=== PATIENT | female | born 1975 | race Caucasian/White ===

== ENCOUNTER → 2017-04-15 | Outpatient (CLI) | payer OTHER ==
[~2017-04-15] MED LIST: ARMO250T5 PO; CABE0.5T PO; CLB/200 PO; DEXT1SYP; FLUT0.15 NAE; FLV1 PO; HYDR25TA4 PO; LEUC5TAB PO; LISI20TA3 PO; METH2.5T PO; METO1TAB69 PO; NORE-37 PO; NORT75CA2 PO; ONDA8TAB7 PO; PANT40TA PO; TAPE50TA5 PO; TEMA30CA4 PO; TOFA1TAB PO; [UNRECOGNIZED DRUG - CODE] PO
[2017-04-15 12:19] LABS: BASO % 0.1 %; BASO ABS # 0.01 K/uL (0-0.2); COMPLETE YES; EOS % 2.1 %; HEMATOCRIT 37.3 % (37-47); IG% 0.2 %; LYMPH % 45.6 %; LYMPH ABS # 3.88 K/uL (1.2-3.4); MEAN CELL VOLUME 95.6 fL (80-100); MEAN CORPUSCULAR HEMOGLOBIN 32.1 pg (25-34); MEAN CORPUSCULAR HGB CONC 33.5 g/dl (32-36); MEAN PLATELET VOLUME 9.9 fL (7.4-10.4); MONO % 6.5 %; NEUT % 45.5 %; PLATELET COUNT 387 K/uL (130-400); WHITE BLOOD COUNT 8.51 K/uL (4.8-10.8)
[2017-04-15 12:46] LABS: ALT/SGPT 33 U/L (12-78); AST/SGOT 19 U/L (15-37); BLOOD UREA NITROGEN 24 mg/dl (7-18); BUN/CREATININE RATIO 28.3 (10-20); CARBON DIOXIDE 29 mmol/L (21-32); CHLORIDE 102 mmol/L (98-107); CREATININE 0.86 mg/dl (0.60-1.20); GLUCOSE 103 mg/dl (70-99); POTASSIUM 3.7 mmol/L (3.5-5.1); SODIUM 136 mmol/L (136-145)
[2017-04-15 12:57] LABS: ALKALINE PHOSPHATASE 97 U/L (45-117); THYROID STIMULATING HORMONE 0.876 uIu/ml (0.300-4.500)
== END | disposition home or self-care (01) ==
LOC: C.LABBFT 10:40
PROVIDERS: ATTEND Internal Medicine
DX: R00.0 Tachycardia, unspecified (principal)

== ENCOUNTER → 2017-05-19 | Outpatient (CLI) | payer OTHER | END | disposition home or self-care (01) | LOC: C.PAPS 10:37 | PROVIDERS: ATTEND Obstetrics & Gynecology | DX: Z12.4 Encounter for screening for malignant neoplasm of cervix (principal) ==

== ENCOUNTER 2021-03-04 22:56 | Inpatient (IN) ==
[2021-03-04] MEDS ORDERED: fentaNYL citrate 100 MCG/2 ML VIAL IV STA (23:35)
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
[2021-03-05 01:08] LABS: Basophils # (auto) 0.01 K/uL (0-0.2); Basophils % (auto) 0.1 %; Eosinophils % (auto) 0.6 %; Hematocrit (blood only) 37.6 % (37-47); Hemoglobin 12.5 g/dL (12.0-16.0); Immature Granulocytes # (auto) 0.06 K/uL (0.00-0.02); Immature Granulocytes % (auto) 0.4 %; Lymphocytes # (auto) 2.07 K/uL (1.2-3.4); Lymphocytes % (auto) 12.5 %; Mean Corpuscular Hemoglobin 30.9 pg (25-34); Mean Corpuscular Hgb Conc 33.2 g/dL (32-36); Mean Corpuscular Volume 93.1 fL (80-100); Mean Platelet Volume 9.5 fL (7.4-10.4); Monocytes # (auto) 0.57 K/uL (0.11-0.59); Monocytes % (auto) 3.4 %; Neutrophils # (auto) 13.77 K/uL (1.4-6.5); Platelet Count 467 K/uL (130-400); RDW Coefficient of Variation 15.3 % (11.5-14.5); RDW Standard Deviation 52.1 fL (36.4-46.3); Red Blood Count 4.04 M/uL (4.2-5.4); White Blood Count 16.58 K/uL (4.8-10.8)
[2021-03-05] MEDS ORDERED: HYDROmorphone INJ 0.5 MG/0.5 ML SYR IV STA (03:21)
[2021-03-05] MEDS ORDERED: ONDANSETRON INJ 2 MG/ML 2 ML VIAL IV PRN ×2 (04:20→14:04)
[2021-03-05] MEDS: D5W AND 1/2NSS 1,000 ML IV SCH ×2 (04:28→17:28)
[2021-03-05] MEDS: [UNRECOGNIZED DRUG - OTHER] SCH ×4 (04:44→23:18)
[2021-03-05] MEDS ORDERED: ceFAZolin 2000MG 2,000 MG/15 ML SYR IV SCH (06:00)
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
[2021-03-05] MEDS: HYDROmorphone INJ 1 MG/ML SYRINGE IV PRN ×3 (06:57→12:49)
[2021-03-05] MEDS: PANTOprazole 40 MG TAB PO SCH (08:04)
[2021-03-05] MEDS: METOPROLOL SUCC 50MG EXT REL TAB PO SCH (08:04)
[2021-03-05] MEDS: lisinopril 20 MG TAB PO SCH ×2 (08:04→20:31)
[2021-03-05] MEDS: DULoxetine HCL 60 MG CAP PO SCH (08:04)
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
--- NOTE | 2021-03-05 09:04 | XRay Report ---
TWO VIEW CHEST CLINICAL HISTORY: Preoperative examination. FINDINGS: AP and lateral chest radiographs are compared to study dated 08/22/2015. The cardiomediasti nal silhouette is unremarkable. The lungs and pleural spaces are clear. There is no pneumothorax. Th e bony thorax appears intact. There is gaseous distention of the stomach. IMPRESSION: No active disease in the chest. ACT 112: Negative or not required by law. Electronically signed by: Cristian Melo M.D. 03/05/2021 9:03 AM
--- NOTE | 2021-03-05 12:06 | Anesthesiology Consultation ---
Date of Service March 05, 2021 Assessment & Plan Chart Review Chart Review: Acceptable Risk for Surgery and Patient NOT seen in Pre Admission Testing Consults Requested none ASA ASA2 Proposed Anesthesia Anesthesia Type: General History Surgery Operation Date: 03/05/21 08:20 Proposed Procedures p Right Tibial Open Reduction Internal Fixation - Daniel Hess, Height/Weight Height: 5 ft 1 in Weight: 75.3 kg Allergies Allergy/AdvReac Type Severity Reaction Status Date / Time No Known Allergies Allergy Unknown Verified 03/04/21 23:24 Medications Home Medications Medication Instructions Recorded Confirmed Last Taken Lactobacillus 1 cap PO DAILY cap 06/01/19 03/05/21 03/04/21 acidophilus-Bifidobac.animalis 31 billion cell capsule armodafinil 250 mg tablet 250 mg PO DAILY PRN tab 06/01/19 03/05/21 Unknown leucovorin calcium 5 mg tablet 5 mg PO .COMPLEX tab 06/01/19 03/05/21 03/02/21 ondansetron 8 mg disintegrating 8 mg PO Q8H PRN #30 tab 06/01/19 03/05/21 Unknown tablet tofacitinib 5 mg tablet 5 mg PO BID tab 06/01/19 03/05/21 03/04/21 cholecalciferol (vitamin D3) 125 10,000 units PO .COMPLEX cap 11/23/19 03/05/21 03/02/21 mcg (5,000 unit) capsule norethindrone acetate 1.5 1 tab PO DAILY #84 tab 06/07/20 03/05/21 03/04/21 mg-ethinyl estradiol 30 mcg tablet celecoxib 200 mg capsule 200 mg PO BID #180 cap 10/26/20 03/05/21 03/04/21 duloxetine 60 mg capsule,delayed 60 mg PO DAILY #90 cap 10/26/20 03/05/21 03/04/21 release lisinopril 20 mg tablet 20 mg PO BID #180 tab 10/26/20 03/05/21 03/04/21 metoprolol succinate 100 mg 100 mg PO DAILY #90 tab 10/26/20 03/05/21 03/04/21 tablet,extended release 24 hr pantoprazole 40 mg tablet,delayed 40 mg PO DAILY #90 tab 10/26/20 03/05/21 03/04/21 release methotrexate sodium 2.5 mg tablet 15 mg PO WEEKLY #72 tab 11/14/20 03/04/21 Unknown folic acid 1 mg tablet 2 mg PO DAILY tab 12/04/20 03/05/21 03/04/21 lorazepam 0.5 mg tablet See Rx Instructions PO DAILY PRN 01/01/21 03/04/21 Unknown #30 tab tramadol 50 mg tablet 50 mg PO .COMPLEX PRN #50 tab 02/09/21 03/04/21 Unknown prednisone 10 mg PO DAILY PRN 03/04/21 03/04/21 Unknown Active Medications Generic Name Dose Route Start Last Admin Trade Name Blaze PRN Reason Stop Dose Admin Duloxetine HCl 60 mg 03/05/21 09:00 03/05/21 08:04 Duloxetine Hcl 60 Mg Cap PO 04/04/21 08:59 60 mg DAILY NINI Administration Hydromorphone HCl 1 mg 03/05/21 04:20 03/05/21 10:36 Hydromorphone Inj 1 Mg/Ml Syringe IV 03/19/21 04:19 1 mg Q1H PRN Administration Pain Dextrose/Sodium Chloride 1,000 mls @ 80 mls/hr 03/05/21 04:20 03/05/21 04:28 D5w And 1/2nss IV 04/04/21 04:19 80 mls/hr .[id number] NINI Administration Lisinopril 20 mg 03/05/21 09:00 03/05/21 08:04 Lisinopril 20 Mg Tab PO 04/04/21 08:59 20 mg BID NINI Administration Metoprolol Succinate 100 mg 03/05/21 09:00 03/05/21 08:04 Metoprolol Succ 50mg Ext Rel Tab PO 04/04/21 08:59 100 mg DAILY NINI Administration Miscellaneous 1 ea 03/05/21 04:30 03/05/21 08:05 Armodafinil~Order Awaiting Action N/A 04/04/21 04:29 Not Given QS NINI Miscellaneous 1 ea 03/05/21 04:30 03/05/21 08:05 Microgestin~Order Awaiting Action N/A 04/04/21 04:29 Not Given QS NINI Pantoprazole Sodium 40 mg 03/05/21 09:00 03/05/21 08:04 Pantoprazole 40 Mg Tab PO 04/04/21 08:59 40 mg DAILY NINI Administration Past Medical History Medical History Allergic rhinitis Anxiety Depression Dry eye syndrome Fatigue GERD (gastroesophageal reflux disease) Hypergammaglobulinemia Hyperlipidemia Hyperprolactinemia Hypertension Hyponatremia IgA deficiency Juvenile rheumatoid arthritis Memory loss Oral contraceptive pill surveillance Vitamin D deficiency Exercise / Class Metabolic Activity II 4-5 Yardwork/Stairs/Walk up hill Past Family History Family History Mother Diabetes Retroperitoneal fibrosis Hypertension Dyslipidemia Grandmother (Maternal) Ovarian cancer Father Hypertension Denies family history of Breast cancer Colorectal cancer Past Surgical History Surgical History H/O elbow surgery Left elbow 2008-[facility] H/O total hip arthroplasty Left total hip arthroplasty 05/30/2015-[facility] Hx of total knee arthroplasty Left total knee arthroplasty 04/14/2012-[facility] Right total knee arthroplasty January 2012-[facility] Past Anesthesia History No Hx of Anesthesia Complications and No Family Hx of Anesthesia Complications History of PONV No Hx of PONV and No Hx of Motion Sickness Social History Smoking Status: Never smoker Hx Alcohol Use: Yes Alcohol type: wine alcohol intake frequency: holidays/special occasions only Hx Substance Use: No Physical Exam Vital Signs Last Vital Signs Temp 36.8 C 03/05/21 07:59 Pulse 115 H 03/05/21 07:59 Resp 16 03/05/21 07:59 BP 137/97 03/05/21 07:59 Pulse Ox 94 03/05/21 07:59 Testing Laboratory Results 03/05/21 00:53 PT 10.0 Seconds (9.0-12.0) 03/05/21 00:53 INR 1.0 (0.9-1.1) 03/05/21 00:53 Electrocardiogram Date: 03/05/21 Findings: + NSR @ (at 98;Voltage criteria for LVH) and + LVH Chest X-Ray Date: 03/05/21 Findings: + NAD
[2021-03-05] MEDS ORDERED: MIDAZOLAM HCL 1 MG/ML 2ML VIAL ONE (12:18)
[2021-03-05] MEDS ORDERED: fentaNYL citrate 100 MCG/2 ML VIAL ONE ×2 (12:18→14:56)
[2021-03-05] MEDS ORDERED: BUPIVACAINE/EPINEPHRINE 0.5% MPF 1:200,000 30 ML VIAL ONE (13:19)
[2021-03-05 13:34] LABS: Pregnancy Test, Serum Negative (Negative)
[2021-03-05] MEDS ORDERED: HYDROmorphone INJ 1 MG/ML SYRINGE IV PRN (14:04)
[2021-03-05] MEDS ORDERED: ePHEDrine sulfate 50 MG/ML AMP IV PRN (14:04)
[2021-03-05] MEDS ORDERED: FLUMAZENIL 0.1 MG/1 ML 10 ML VIAL IV PRN (14:04)
[2021-03-05] MEDS ORDERED: ATROPINE SULFATE 0.1 MG/ML 10ML SYR IV PRN (14:04)
[2021-03-05] MEDS ORDERED: PROMETHAZINE HCL 12.5 MG in SODIUM CHLORIDE 0.9% 50 ML IV PRN (14:04)
[2021-03-05] MEDS ORDERED: NALOXONE HCL 0.4 MG/1 ML VIAL/CARP IV PRN ×2 (14:04→17:26)
[2021-03-05] MEDS ORDERED: LABETALOL HCL IV 5 MG/ML 20ML IV PRN (14:04)
[2021-03-05] MEDS ORDERED: PROPOFOL IV EMULSION 10 MG/ML 20 ML VIAL IV ONE (14:46)
[2021-03-05] MEDS ORDERED: LIDOCAINE 2% 2 ML VIAL/AMP(20MG/ML) INFIL ONE (14:46)
[2021-03-05] MEDS ORDERED: ONDANSETRON INJ 2 MG/ML 2 ML VIAL ONE (14:46)
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
--- NOTE | 2021-03-05 15:56 | Fluoroscopy Report ---
FL tibia/fibula RT 2V HISTORY: 45 years-old Female RIGHT TIB/FIB PLATE acute fracture of the right tibia and fibula COMPARISON: Radiographs dated 03/04/2021 TECHNIQUE: 4 spot fluoroscopic images of the right tibia and fibula were obtained utilizing 21.1 seco nds fluoroscopy time FINDINGS: Status post plate and screw fusion of the mid tibial diaphysis fixating the acute fracture which now demonstrates near-anatomic alignment. Acute mildly displaced fractures of the fibula redemonstrated. Expected postoperative soft tissue swelling with deep tissue air. Partially imaged right knee arthrop lasty. No unexpected opaque foreign body identified.. IMPRESSION: Fluoroscopic assistance as above. ACT 112: Negative or not required by law. The above report was generated using voice recognition software. It may contain grammatical, syntax o r spelling errors. Electronically signed by: Aly Barr M.D. 03/05/2021 3:54 PM
[2021-03-05] MEDS: fentaNYL citrate 100 MCG/2 ML VIAL IV PRN ×2 (16:20→16:26)
[2021-03-05] MEDS ORDERED: METOPROLOL TARTRATE 1 MG/ML VIAL IV STA (16:40)
[2021-03-05] MEDS ORDERED: METOPROLOL TARTRATE 1 MG/ML VIAL IV ONE (16:42)
--- NOTE | 2021-03-05 16:49 | Anesthesiology Progress Note ---
Date of Service March 05, 2021 Anesthesia Post Procedure Vital Signs Vital Signs: Temp Pulse Pulse Pulse Resp BP BP 03/05/21 16:44 110 H 145/78 H 03/05/21 16:35 36.4 C L 106 H 19 133/86 03/05/21 16:25 106 H 12 132/88 03/05/21 16:15 106 H 12 133/94 03/05/21 16:05 110 H 19 128/90 03/05/21 15:56 36.6 C 116 H 12 121/89 03/05/21 13:10 37.2 C 94 H 18 03/05/21 07:59 36.8 C 115 H 16 03/05/21 04:00 36.6 C 106 H 18 03/05/21 01:08 104 H 18 03/04/21 23:08 36.6 C 94 H 98 H 18 137/106 H BP Pulse Ox 03/05/21 16:44 03/05/21 16:35 93 03/05/21 16:25 93 03/05/21 16:15 95 03/05/21 16:05 100 03/05/21 15:56 100 03/05/21 13:10 127/94 94 03/05/21 07:59 137/97 94 03/05/21 04:00 140/98 97 03/05/21 01:08 124/56 L 97 03/04/21 23:08 120/62 97 Pain Intensity Right Lower Leg: Pain Intensity: 2 Transfer of Care Handoff Completed per policy Notes Mental Status: alert / awake / arousable Patient Amnestic to Procedure: Yes Nausea / Vomiting: adequately controlled Pain: adequately controlled Airway Patency, RR, SpO2: stable & adequate BP & HR: stable & adequate Hydration State: stable & adequate Anesthetic Complications: no major complications apparent
--- NOTE | 2021-03-05 17:33 | Electrocardiogram Report ---
Test Reason : Blood Pressure : / mmHG Vent. Rate : 098 BPM Atrial Rate : 098 BPM P-R Int : 126 ms QRS Dur : 072 ms QT Int : 346 ms P-R-T Axes : 036 000 -02 degrees QTc Int : 441 ms Normal sinus rhythm Minimal voltage criteria for LVH, may be normal variant Nonspecific T wave abnormality No previous ECGs available Confirmed by Mckay Kinney ([id number]) on 03/05/2021 5:32:43 PM Referred By: REFERRED SELF Confirmed By:Mckay Kinney
[2021-03-05] MEDS ORDERED: HYDROmorphone INJ 0.5 MG/0.5 ML SYR IV PRN (18:22)
[2021-03-05] MEDS ORDERED: KETOROLAC 30 MG/ML VIAL IV PRN (18:22)
[2021-03-05] MEDS ORDERED: ACETAMINOPHEN 500 MG TAB PO PRN (18:22)
[2021-03-05] MEDS ORDERED: HYDROmorphone INJ 2 MG/ML SYR/VIAL IV PRN (19:03)
[2021-03-05] MEDS ORDERED: HYDROmorphone HCL 2 MG TAB PO PRN (19:03)
[2021-03-05] MEDS ORDERED: KETOROLAC 30 MG/ML VIAL IV SCH (19:15)
[2021-03-05] MEDS: KETOROLAC 30 MG/ML VIAL IV SCH (19:33)
[2021-03-05] MEDS: oxyCODONE HCL IR 5 MG TAB (IMMEDIATE RELEASE) PO PRN (20:32)
[2021-03-05] MEDS: ACETAMINOPHEN 500 MG TAB PO SCH (22:08)
[2021-03-06] MEDS: KETOROLAC 30 MG/ML VIAL IV SCH ×2 (03:48→12:09)
[2021-03-06] MEDS: ACETAMINOPHEN 500 MG TAB PO SCH ×2 (05:09→12:08)
--- NOTE | 2021-03-06 06:53 | Orthopedic Progress Note ---
Date of Service March 06, 2021 Assessment & Plan (1) Fracture tibia/fibula: Overall she is doing fairly well. She is having some soreness in the right leg which is to be expected. She will be seen by physical therapy today for ambulation. She can be touch toe weightbearing on the right leg. We will continue Xarelto 10 mg daily for DVT prophylaxis. She is orthopedically stable for discharge if she does well with physical therapy. She is going to be staying with her parents for several weeks. She will follow-up with orthopedics in 2 weeks. Trino Lynn was seen and examined at bedside this morning. Overall she is doing fairly well. She is having a lot of soreness in the right leg which is to be expected. She had no acute events overnight.. Review of Systems All systems reviewed & are unremarkable except as noted in HPI & below. Physical Exam On physical examination of the right leg, the dressing is clean and dry. Her leg is elevated. She has active dorsiflexion plantarflexion of her right ankle.. Results & Data Results & Data Laboratory Results . Diagnostic Findings . PG Care Time/CCT Total # of Minutes Spent Total Time Spent with Patient: Total time spent is greater than 50% in coordination of care (as documented) at patient's floor/unit and/or counseling patient: Coding Level of Care Code 52658 Post Operative Follow-Up Diagnoses Fracture tibia/fibula S82.201A; S82.401A Encounter type: initial encounter Fracture type: closed Laterality: right (1) Fracture tibia/fibula Encounter type: initial encounter Fracture type: closed Laterality: right Qualified Code(s): S82.201A - Unspecified fracture of shaft of right tibia, initial encounter for closed fracture; S82.401A - Unspecified fracture of shaft of right fibula, initial encounter for closed fracture
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
[2021-03-06 08:04] LABS: Creatinine Clr Calc Pharmacy 102.5 ml/min; Est GFR (African American) 125.1 ml/min
[2021-03-06] MEDS: oxyCODONE HCL IR 5 MG TAB (IMMEDIATE RELEASE) PO PRN (08:17)
[2021-03-06] MEDS: [UNRECOGNIZED DRUG - OTHER] SCH (08:18)
[2021-03-06] MEDS: lisinopril 20 MG TAB PO SCH (08:18)
[2021-03-06] MEDS: METOPROLOL SUCC 50MG EXT REL TAB PO SCH (08:19)
[2021-03-06] MEDS: PANTOprazole 40 MG TAB PO SCH (08:19)
[2021-03-06] MEDS: DULoxetine HCL 60 MG CAP PO SCH (08:19)
[2021-03-06] MEDS ORDERED: RIVAROXABAN 10 MG TABLET PO SCH (09:00)
== END 2021-03-06 15:20 | disposition home or self-care (01) | DRG 494 ==
LOC: ED 22:56 → 3N 03-05 00:41